=== PATIENT | male | born 1970 | race Two or more races ===

== ENCOUNTER 2018-11-18 04:05 | Emergency (ER) | payer SELFPAY ==
[~2018-11-18] VITALS: Ht 182.9 cm; Wt 105.3 kg
[2018-11-18 04:06] VITALS: BP 147/101
--- NOTE | 2018-11-18 04:18 | NUR ---
FIRST CONTACT WITH PT. PT. RESTING ON GURNEY IN SITTING POSITION. PT. C/O LEFT HAND PAIN. CMS INTACT.
--- NOTE | 2018-11-18 04:37 | NUR ---
PT. AWAITING PROVIDER EVAL.
[2018-11-18] MEDS ORDERED: KETOROLAC 30 MG/1 ML ONE (04:46)
[2018-11-18] MEDS ORDERED: KETOROLAC 30 MG/1 ML IM ONE (05:00)
== END 2018-11-18 05:28 | disposition home or self-care (01) ==
LOC: ED 05:14
DX: T33.521A Superficial frostbite of right hand, initial encounter (principal); T33.522A Superficial frostbite of left hand, initial encounter; X31.XXXA Exposure to excessive natural cold, initial encounter; Y93.89 Activity, other specified; Y92.89 Other specified places as the place of occurrence of the external cause; Y99.8 Other external cause status
CPT/HCPCS: 96372; 99283; J1885